=== PATIENT | female | born 1995 | race Two or more races ===

== ENCOUNTER 2018-02-23 09:10 | Day surgery (SDC) | payer OTHER ==
[2018-02-23] MEDS ORDERED: LIDOCAINE 1% MDV 20ML VIAL SQ (09:30)
[2018-02-23] MEDS ORDERED: MIDAZOLAM INJ 2 MG/2 ML VIAL (J2250) As Ordered (09:59)
[2018-02-23] MEDS ORDERED: fentaNYL 100 MCG/2 ML INJECTION (J3010) As Ordered ×2 (09:59→13:06)
[2018-02-23] MEDS ORDERED: ROCURONIUM BROMIDE 50 MG/5 ML VIAL As Ordered (10:00)
[2018-02-23] MEDS ORDERED: LIDOCAINE 2% INJ 100 MG/5 ML SDV (FOR ANES.) As Ordered (10:00)
[2018-02-23] MEDS ORDERED: PROPOFOL 200 MG/20 ML VIAL As Ordered (10:00)
[2018-02-23] MEDS ORDERED: ONDANSETRON 4MG/2ML VIAL (J2405) As Ordered ×2 (10:10→13:06)
[2018-02-23 10:24] LABS: CONTROL LINE UCG INT CTR LINE PRESENT; URINE PREG TEST NEGATIVE (NEGATIVE)
[2018-02-23] MEDS: LR 1,000 ML IV (10:35)
[2018-02-23] MEDS: AMPICILLIN SOD/SULBACTAM SOD 3 GM in D5W MINI-BAG PLUS 100 ML IV (11:50)
[2018-02-23] MEDS: dexameTHASONE 4 MG/ML 1ML VIAL (J1100) IV (11:50)
[2018-02-23] MEDS: LIDOCAINE 2% W/ EPINEPHRINE 1.7 ML DENTAL INJ As Ordered (11:59)
[2018-02-23] MEDS ORDERED: LABETALOL HCL 100 MG/20 ML VIAL As Ordered (12:12)
[2018-02-23] MEDS: fentaNYL 100 MCG/2 ML INJECTION (J3010) IV ×4 (13:19→14:19)
[2018-02-23] MEDS: ONDANSETRON 4MG/2ML VIAL (J2405) IV (13:28)
[2018-02-23] MEDS ORDERED: LR 1,000 ML IV (13:30)
[2018-02-23] MEDS ORDERED: NORCO, ANEXSIA 5/325MG TABLET (HYDROcodone/ACETAMINOPHEN) As Ordered (13:39)
[2018-02-23] MEDS: NORCO, ANEXSIA 5/325MG TABLET (HYDROcodone/ACETAMINOPHEN) PO ×2 (13:40→14:14)
== END 2018-02-23 16:26 | disposition home or self-care (01) ==
LOC: M SDC 09:10
DX: K01.1 Impacted teeth (principal); F41.9 Anxiety disorder, unspecified; F32.9 Major depressive disorder, single episode, unspecified; Z79.899 Other long term (current) drug therapy
CPT/HCPCS: D7210